=== PATIENT | female | born 1990 | race Caucasian/White ===

== ENCOUNTER 2016-11-06 08:19 | Emergency (ER) | payer BC, OTHER ==
[2016-11-06 09:00] VITALS: BP 129/84
--- NOTE | 2016-11-06 09:00 | ED ---
Lower Extremity - HPI Summary HPI Summary: fall down one step this morning. right ankle pain and swelling. - History of Current Complaint Chief Complaint: UCLowerExtremity Stated Complaint: RIGHT ANKLE PAIN Time Seen by Provider: 11/06/16 08:54 Hx Obtained From: Patient Hx Last Menstrual Period: 10/08/16 Mechanism Of Injury: Twisted Onset of Pain: Immediate Onset/Duration: Hours Severity Initially: Moderate Severity Currently: Moderate Timing: Constant Location: Is Discrete @ Character Of Pain: Sharp, Aching, Stiffness Associated Signs And Symptoms: Positive: Swelling Aggravating Factor(s): Standing, Ambulation Alleviating Factor(s): Rest, Elevation - Allergies/Home Medications Allergies/Adverse Reactions: Allergies Allergy/AdvReac Type Severity Reaction Status Date / Time No Known Allergies Allergy Verified 11/06/16 08:37 Home Medications: Home Medications Ibuprofen TAB* [Advil TAB*] 1,000 mg PO Q6H PRN 11/06/16 [History Confirmed 05/24] Oral Contraceptive 1 tab PO DAILY 11/06/16 [History] PMH/Surg Hx/FS Hx/Imm Hx Previously Healthy: Yes Endocrine/Hematology History: Denies: Hx Diabetes Cardiovascular History: Denies: Hx Hypertension, Hx Pacemaker/ICD Respiratory History: Denies: Hx Asthma History: Denies: Hx Dialysis, Hx Renal Disease Musculoskeletal History: Reports: Other Musculoskeletal History - chronic right arm pain Sensory History: Denies: Hx Contacts or Glasses, Hx Hearing Aid Opthamlomology History: Denies: Hx Contacts or Glasses Psychiatric History: Denies: Hx Panic Disorder - Surgical History Surgery Procedure, Year, and Place: tubes in ears. tonsillectomy T&A. tear duct. right carpal tunnel repair. Trial cervical DCS PUT IN AND REMOVED Hx Anesthesia Reactions: No Infectious Disease History: No Infectious Disease History: Denies: Traveled Outside the [place] in Last 30 Days - Family History Known Family History: Positive: Other - no related ankle issues. - Social History Alcohol Use: Occasionally Substance Use Type: Reports: None Smoking Status (MU): Never Smoked Tobacco Review of Systems Positive: Arthralgia All Other Systems Reviewed And Are Negative: Yes Physical Exam Triage Information Reviewed: Yes Vital Signs On Initial Exam: Initial Vitals Temp Pulse Resp BP Pulse Ox 98.9 F 78 18 129/84 99 11/06/16 08:42 11/06/16 08:42 11/06/16 08:42 11/06/16 08:42 11/06/16 08:42 Vital Signs Reviewed: Yes Appearance: Positive: Well-Appearing, No Pain Distress, Well-Nourished Skin: Positive: Warm Head/Face: Positive: Normal Head/Face Inspection Eyes: Positive: Normal ENT: Positive: Normal ENT inspection Neck: Positive: Supple, Nontender, No Lymphadenopathy Respiratory/Lung Sounds: Positive: Clear to Auscultation Cardiovascular: Positive: Normal Abdomen Description: Positive: Nontender Musculoskeletal: Positive: Pain @, Edema Right - right ankle lateral tendenress as well as tenderness of the right alteral foot. no proximal fibula tenderness. Neurological: Positive: Normal Psychiatric: Positive: Normal Procedures - Splinting Location: right ankle and foot. Hand-Made Type: orthoglass Splint: posterior walking Pre-Proc Neuro Vasc Exam: normal Post-Proc Neuro Vasc Exam: normal Diagnostics - Vital Signs Vital Signs Temp Pulse Resp BP Pulse Ox 11/06/16 08:42 98.9 F 78 18 129/84 99 - Laboratory Lab Statement: Any lab studies that have been ordered have been reviewed, and results considered in the medical decision making process. Lower Extremity Course/Dx - Diagnoses Provider Diagnoses: Abraham fracture Discharge - Discharge Plan Condition: Good Disposition: HOME Patient Education Materials: Foot Fracture in Adults (ED) Referrals: Mike Vázquez MD [Primary Care Provider] - Tung Hendrickson MD [Medical Doctor] -
--- NOTE | 2016-11-06 09:38 | RAD ---
Indication: Right foot pain. 3 views of the right foot demonstrates nondisplaced fracture at the base of the fifth metatarsal. No other bone or joint abnormality is noted. IMPRESSION: Nondisplaced fracture base of the fifth metatarsal.
--- NOTE | 2016-11-06 09:38 | RAD ---
Indication: Right lateral foot tenderness. 3 views of the right foot demonstrates ankle mortise intact. Soft tissue swelling is noted laterally. No fracture is noted. IMPRESSION: Soft tissue swelling without evidence of fracture.
== END 2016-11-06 10:03 | disposition home or self-care (01) ==
LOC: UCCORT 08:19
DX: S92.354A Nondisplaced fracture of fifth metatarsal bone, right foot, initial encounter for closed fracture (principal); W10.9XXA Fall (on) (from) unspecified stairs and steps, initial encounter; Y93.9 Activity, unspecified; Y92.9 Unspecified place or not applicable
CPT/HCPCS: 99202; G0463

== ENCOUNTER 2017-05-04 11:10 | Emergency (ER) | payer BC, OTHER ==
[2017-05-04 13:12] VITALS: BP 161/98
--- NOTE | 2017-05-04 13:29 | UC ---
Throat Pain/Nasal Jorge HPI - HPI Summary HPI Summary: severe sore throat, nasal congestion, fever and upset stomach, left ear pain for the past 3 days - History of Current Complaint Chief Complaint: UCRespiratory Stated Complaint: EAR PAIN/ST Time Seen by Provider: 05/04/17 13:04 Hx Obtained From: Patient Hx Last Menstrual Period: 04/10/17 ?: No Onset/Duration: Sudden Onset, Lasting Days Severity: Severe Pain Intensity: 9 Associated Signs & Symptoms: Positive: Dysphagia, Hoarseness, Sinus Discomfort, Nasal Discharge - Allergies/Home Medications Allergies/Adverse Reactions: Allergies Allergy/AdvReac Type Severity Reaction Status Date / Time No Known Allergies Allergy Verified 05/04/17 13:06 PMH/Surg Hx/FS Hx/Imm Hx Previously Healthy: Yes - Surgical History Surgical History: Yes Surgery Procedure, Year, and Place: tubes in ears. tonsillectomy T&A. tear duct. right carpal tunnel repair. Trial cervical DCS PUT IN AND REMOVED - Family History Known Family History: Negative: Cardiac Disease, Hypertension - Social History Alcohol Use: Occasionally Substance Use Type: None Smoking Status (MU): Never Smoked Tobacco Review of Systems Constitutional: Negative, Fever, Fatigue Skin: Negative Eyes: Eye Redness ENT: Sore Throat, Ear Ache, Nasal Discharge, Sinus Pain/Tenderness Respiratory: Shortness Of Breath, Cough Cardiovascular: Negative Gastrointestinal: Negative Genitourinary: Negative Motor: Negative Neurovascular: Negative Musculoskeletal: Myalgia Neurological: Negative, Headache Psychological: Negative Is Patient Immunocompromised?: No All Other Systems Reviewed And Are Negative: Yes Physical Exam Triage Information Reviewed: Yes Appearance: Well-Nourished, Ill-Appearing, Pain Distress Vital Signs: Initial Vital Signs Temp 100.1 F 05/04/17 13:07 Pulse 120 05/04/17 13:07 Resp 20 05/04/17 13:07 BP 161/98 05/04/17 13:07 Pulse Ox 100 05/04/17 13:07 Vital Signs Reviewed: Yes Eyes: Positive: Conjunctiva Inflamed ENT: Positive: Pharyngeal erythema, TM bulging, TM red, Tonsillar swelling, Sinus tenderness Dental Exam: Normal Neck exam: Normal Neck: Positive: Supple, Nontender, No Lymphadenopathy Respiratory Exam: Normal Respiratory: Positive: Chest non-tender, Lungs clear, Normal breath sounds, Decreased breath sounds Cardiovascular Exam: Normal Cardiovascular: Positive: No Murmur, Pulses Normal, Tachycardia Abdominal Exam: Normal Abdomen Description: Positive: Nontender, No Organomegaly, Soft Bowel Sounds: Positive: Present Musculoskeletal Exam: Normal Musculoskeletal: Positive: Strength Intact, ROM Intact, No Edema Neurological Exam: Normal Psychological Exam: Normal Skin Exam: Normal Throat Pain/Nasal Course/Dx - Course Course Of Treatment: hx obtained, exam performed ,meds reviewed, ua preg obtained, treated for tonsillitis and pharyngitis Assessment/Plan: hx obtained, exam performed, meds reviewed, ua preg neg, treated for tonsillitis - Differential Dx/Diagnosis Differential Diagnosis/HQI/PQRI: Influenza, Otitis Media, Pharyngitis, Sinusitis , URI Provider Diagnoses: tonsillitis, otitis media left ear Discharge - Discharge Plan Condition: Stable Disposition: HOME Patient Education Materials: Tonsillitis (ED) Referrals: [facility] [Primary Care Provider] - Additional Instructions: 1. increase fluid intake and get plenty of rest. 2. Take the medication as prescribed. 3. FOllow up with any worsening symptoms.
== END 2017-05-04 14:15 | disposition home or self-care (01) ==
LOC: UCCORT 11:10
DX: J03.90 Acute tonsillitis, unspecified (principal); H66.92 Otitis media, unspecified, left ear; Z32.02 Encounter for pregnancy test, result negative
CPT/HCPCS: 84702; 99212; G0463